=== PATIENT | female | born 1985 | race Two or more races ===

== ENCOUNTER 2018-08-07 01:31 | Emergency (ER) | payer OTHER ==
[~2018-08-07] VITALS: Ht 157.5 cm; Wt 51.3 kg
[2018-08-07] MEDS ORDERED: SYNTHROID88 MCG (01:49)
[2018-08-07] MEDS ORDERED: TAMS0.4C PO (06:42)
[2018-08-07] MEDS ORDERED: KETO10TA2 PO (06:42)
[2018-08-07] MEDS ORDERED: ONDANSETRON ODT4 MG SL (06:42)
== END 2018-08-07 07:44 | disposition home or self-care (01) ==
LOC: ER 01:31
DX: N21.1 Calculus in urethra (principal); R10.32 Left lower quadrant pain; K29.70 Gastritis, unspecified, without bleeding; E86.0 Dehydration

== ENCOUNTER 2023-03-24 00:02 | Inpatient (IN) | payer OTHER ==
[~2023-03-24] VITALS: Ht 157.5 cm; Wt 51.7 kg
[~2023-03-24 00:02] MED LIST: KETO10TA2 PO; ONDANSETRON ODT4 MG SL; SYNTHROID88 MCG; TAMS0.4C PO
[2023-03-24 02:38] LABS: HEMATOCRIT 37.5 % (36.0-45.00); HEMOGLOBIN 12.9 g/dL (12.0-15.00); MEAN CELL VOLUME 85.5 fL (80.00-100.00); MEAN CORPUSCULAR HEMOGLOBIN 29.4 pg (27.00-32.0); MEAN CORPUSCULAR HGB CONC 34.3 g/dl (32.0-36.0); PLATELET COUNT 288 K/uL (150-450); RED BLOOD COUNT 4.39 M/uL (4.00-6.00); RED CELL DISTRIBUTION WIDTH 12.8 % (11.5-14.5)
[2023-03-24 03:09] LABS: ALBUMIN 3.5 gm/dL (3.4-5.0); BILIRUBIN TOTAL 0.2 mg/dL (0.3-1.2); CALCIUM 8.8 mg/dL (8.5-10.1); CREATININE SERUM 0.87 mg/dL (0.55-1.02); GFR 73.67; GLOBULINA 3.2 G/DL (2.4-3.5); POTASSIUM 3.72 mEq/L (3.5-5.1); TOTAL PROTEIN 6.7 gm/dL (6.4-8.2)
[2023-03-24 03:11] LABS: TSH 1.54 uIU/mL (0.358-3.74)
[2023-03-24] MEDS ORDERED: CLOPIDOGREL BISULFATE 75 MG TABLET PO STA (07:32)
[2023-03-24] MEDS ORDERED: NITROGLYCERIN 0.4 MG/HR PATCH.TD24 TD STA (07:33)
[2023-03-24] MEDS ORDERED: SODIUM CHLORIDE 0.45 % 1,000 ML IV SCH (09:00)
[2023-03-24] MEDS ORDERED: METOPROLOL SUCCINATE 50 MG TAB.SR.24H PO SCH (09:00)
[2023-03-24] MEDS ORDERED: LEVOTHYROXINE SODIUM 100 MCG TABLET PO SCH (09:00)
[2023-03-24] MEDS ORDERED: NITROGLYCERIN 0.4 MG TAB.SUBL SL PRN (09:00)
[2023-03-24] MEDS ORDERED: METOPROLOL SUCCINATE 25 MG TAB.SR.24H PO SCH (09:00)
[2023-03-24] MEDS ORDERED: PANTOPRAZOLE SODIUM 40 MG/VIAL VIAL IV PUSH SCH (09:00)
[2023-03-24] MEDS ORDERED: ACETAMINOPHEN 500 MG GEL..CAP PO PRN (09:00)
[2023-03-24] MEDS ORDERED: ONDANSETRON HCL 4 MG in DEXTROSE 5 % IN WATER 50 ML IV PRN (09:00)
[2023-03-24] MEDS ORDERED: ENOXAPARIN SODIUM 60 MG/0.6 ML SYRINGE SUBCUTANEO SCH ×2 (09:00→21:00)
[2023-03-24] MEDS ORDERED: METHYLPREDNISOLONE SOD SUCC 40 MG VIAL IV STA (10:42)
[2023-03-24] MEDS ORDERED: DIPHENHYDRAMINE HCL 50 MG/ML VIAL 1ML IV SCH (10:45)
[2023-03-24] MEDS ORDERED: FF) FLECAINIDE ACETATE 50MG TAB PO SCH (21:00)
[2023-03-24] MEDS ORDERED: CLONAZEPAM 0.5 MG TABLET PO SCH (21:00)
[2023-03-25 06:04] LABS: HEMATOCRIT 33.1 % (36.0-45.00); HEMOGLOBIN 11.2 g/dL (12.0-15.00); MEAN CELL VOLUME 86.1 fL (80.00-100.00); MEAN CORPUSCULAR HEMOGLOBIN 29.1 pg (27.00-32.0); MEAN CORPUSCULAR HGB CONC 33.9 g/dl (32.0-36.0); PLATELET COUNT 279 K/uL (150-450); RED BLOOD COUNT 3.84 M/uL (4.00-6.00); RED CELL DISTRIBUTION WIDTH 12.7 % (11.5-14.5)
[2023-03-25 06:39] LABS: INR 1.08; PARTIAL THROMBOPLASTIN TIME 30.3 SECONDS (22.0-34.0); PROTHROMBIN TIME 11.3 SECONDS (9.0-11.5)
[2023-03-25 06:47] LABS: ALBUMIN 3.1 gm/dL (3.4-5.0); ALKALINE PHOSPHATASE 68 U/L (50-136); ALT/SGPT 13 U/L (12-78); ANION GAP 7 (10.0-20.0); AST/SGOT 6 U/L (15-37); BILIRUBIN TOTAL 0.29 mg/dL (0.3-1.2); BILIRUBIN,CONJUGATED < 0.10 mg/dL (0.0-0.2); BILIRUBIN,UNCONJUGATED 0.19 mg/dL (0.0-0.6); BLOOD UREA NITROGEN 11 mg/dL (7-18); BUN CREA RATIO 14 (7.0-25.0); CALCIUM 8.3 mg/dL (8.5-10.1); CARBON DIOXIDE 27 mEq/L (21-32); CHLORIDE 108 mmol/L (98-107); CHOL HDL RATIO 3.2 (0-5.0); CHOLESTEROL 158 mg/dL (0-200); GFR 81.16; GLOBULINA 2.7 G/DL (2.4-3.5); GLUCOSE FASTING 110 mg/dL (65-100); HDL 50 mg/dl (40-60); LDL 91 mg/dl (0-130); OSMOLALITY SERUM 278 MOSM/KG (275-295); POTASSIUM 3.18 mEq/L (3.5-5.1); SODIUM 139 mmol/L (136-145); T4 FREE 1.21 NG/ML (0.76-1.46); TOTAL PROTEIN 5.8 gm/dL (6.4-8.2); TRIGLYCERIDES 83 mg/dL (0-150); VLDL 16 (0-39)
[2023-03-25 06:48] LABS: C-REACTIVE PROTEIN < 0.29 MG/DL (0.00-0.29); HCG QUANTITATIVE < 1 mUI/mL (1-3)
[2023-03-25] MEDS ORDERED: METOPROLOL SUCCINATE 25 MG TAB.SR.24H PO SCH (09:00)
[2023-03-25] MEDS ORDERED: FF) FLECAINIDE ACETATE 50MG TAB PO SCH (10:45)
[2023-03-25] MEDS ORDERED: POTASSIUM CHLORIDE 20MEQ/100ML H2O PB IV SCH (18:00)
[2023-03-25] MEDS ORDERED: FAMOtidine 40 MG TABLET PO SCH (21:00)
[2023-03-26] MEDS ORDERED: LEVOTHYROXINE SODIUM 100 MCG TABLET PO SCH (06:00)
[2023-03-26] MEDS ORDERED: FLECAINIDE ACET50 MG PO (08:37)
[2023-03-26] MEDS ORDERED: TOPROL XL25 M1 PO (08:37)
[2023-03-26] MEDS ORDERED: FAMOTIDINE40 MG PO (08:38)
[2023-03-26] MEDS ORDERED: SYNTHROID100 MCG PO (08:38)
== END 2023-03-26 11:44 | disposition home or self-care (01) | DRG 282 ==
LOC: ER 00:02 → SEC-K 09:47 → MEDI 09:47
PROVIDERS: ADMIT Internal Medicine; ATTEND Internal Medicine
PROC: B44HZZZ Ultrasonography of Bilateral Lower Extremity Arteries (ICD-10-PCS; principal; 2023-03-24)
PROC: BW24YZZ Computerized Tomography (CT Scan) of Chest and Abdomen using Other Contrast (ICD-10-PCS; 2023-03-24)
PROC: B24BZZZ Ultrasonography of Heart with Aorta (ICD-10-PCS; 2023-03-24)
PROC: 4A12X4Z Monitoring of Cardiac Electrical Activity, External Approach (ICD-10-PCS; 2023-03-24)
DX: I48.20 Chronic atrial fibrillation, unspecified (principal); I21.A1 Myocardial infarction type 2; I45.6 Pre-excitation syndrome; E87.6 Hypokalemia; I49.9 Cardiac arrhythmia, unspecified

== ENCOUNTER 2024-02-19 12:55 | Inpatient (IN) | payer OTHER ==
[~2024-02-19] VITALS: Ht 157.5 cm; Wt 67.1 kg
[~2024-02-19 12:55] MED LIST changes: +FAMOTIDINE40 MG PO; +FLECAINIDE ACET50 MG PO; +SYNTHROID100 MCG PO; +TOPROL XL25 M1 PO
[2024-03-01 10:45] VITALS: BP 119/75
[2024-03-01] MEDS ORDERED: AMPICILLIN SODIUM 2,000 MG VIAL ONE (11:19)
[2024-03-01] MEDS ORDERED: OXYTOCIN 20 UNITS/500ML RL PIGGYBAG IV ONE (11:43)
[2024-03-01] MEDS ORDERED: OXYTOCIN 500 ML IV SCH (11:45)
[2024-03-01 12:00] LABS: MEAN CELL VOLUME 82.1 fL (80.00-100.00); MEAN CORPUSCULAR HEMOGLOBIN 27.4 pg (27.00-32.0); MEAN CORPUSCULAR HGB CONC 33.3 g/dl (32.0-36.0); PLATELET COUNT 242 K/uL (150-450); RED BLOOD COUNT 4.02 M/uL (4.00-6.00)
[2024-03-01] MEDS ORDERED: PRENATA CHEWAB1 EACH PO (12:12)
[2024-03-01] MEDS ORDERED: SYNTHROID150 MCG PO (12:12)
[2024-03-01] MEDS ORDERED: PROBIOTIC1 EAC4 PO (12:13)
[2024-03-01] MEDS ORDERED: IRON236 MG PO (12:13)
[2024-03-01] MEDS ORDERED: AMPICILLIN SODIUM 2,000 MG VIAL IV ONE (12:15)
[2024-03-01] MEDS ORDERED: RINGERS SOLUTION,LACTATED 1,000 ML IV SCH ×2 (12:15→17:00)
[2024-03-01 12:25] LABS: INR < 0.93; PARTIAL THROMBOPLASTIN TIME 27.8 SECONDS (22.0-34.0)
[2024-03-01 12:41] LABS: RED CELL DISTRIBUTION WIDTH 17.8 % (11.5-14.5)
[2024-03-01 12:50] LABS: ALBUMIN 2.3 gm/dL (3.4-5.0); BILIRUBIN TOTAL 0.28 mg/dL (0.3-1.2); CALCIUM 9.1 mg/dL (8.5-10.1); CREATININE SERUM 0.69 mg/dL (0.55-1.02); GFR 95.73; GLOBULINA 3.7 G/DL (2.4-3.5); POTASSIUM 4.1 mEq/L (3.5-5.1)
[2024-03-01 15:50] VITALS: BP 116/72
[2024-03-01] MEDS ORDERED: AMPICILLIN SODIUM 1,000 MG VIAL IV SCH (16:00)
[2024-03-01] MEDS ORDERED: OXYTOCIN 10 UNITS/ML VIAL ONE (16:06)
[2024-03-01] MEDS ORDERED: ERYTHROMYCIN BASE OPHT 1GM EACH TUBE OP ONE (16:07)
[2024-03-01] MEDS ORDERED: MORPHINE SULFATE 4 MG/ML CARTRIDGE IV PRN (17:00)
[2024-03-01] MEDS ORDERED: SIMETHICONE 125 MG CAPSULE PO SCH (17:00)
[2024-03-01] MEDS ORDERED: OXYTOCIN 1,000 ML IV ONE (17:00)
[2024-03-01] MEDS ORDERED: GABAPENTIN 300 MG CAPSULE PO SCH (17:00)
[2024-03-01] MEDS ORDERED: ONDANSETRON HCL 2 MG/ML VIAL IV SCH (18:00)
[2024-03-01] MEDS ORDERED: KETOROLAC TROMETHAMINE 30 MG VIAL IV SCH (18:00)
[2024-03-01] MEDS ORDERED: ACETAMINOPHEN 500 MG GEL..CAP PO SCH (18:00)
[2024-03-01] MEDS ORDERED: ONDANSETRON HCL 2 MG/ML VIAL ONE (20:28)
[2024-03-01] MEDS ORDERED: ACETAMINOPHEN 500 MG GEL..CAP PO ONE (20:28)
[2024-03-01] MEDS ORDERED: KETOROLAC TROMETHAMINE 30 MG VIAL ONE (20:29)
[2024-03-01] MEDS ORDERED: SIMETHICONE 125 MG CAPSULE PO ONE (20:32)
[2024-03-01] MEDS ORDERED: GABAPENTIN 300 MG CAPSULE PO ONE (20:32)
[2024-03-01 21:25] VITALS: BP 115/75
[2024-03-02 00:34] VITALS: BP 120/76
[2024-03-02 07:03] LABS: HEMATOCRIT 28.4 % (36.0-45.00); HEMOGLOBIN 9.9 g/dL (12.0-15.00); MEAN CELL VOLUME 81.8 fL (80.00-100.00); MEAN CORPUSCULAR HEMOGLOBIN 28.4 pg (27.00-32.0); MEAN CORPUSCULAR HGB CONC 34.7 g/dl (32.0-36.0); PLATELET COUNT 194 K/uL (150-450); RED BLOOD COUNT 3.48 M/uL (4.00-6.00); RED CELL DISTRIBUTION WIDTH 17.9 % (11.5-14.5)
[2024-03-02 08:00] VITALS: BP 104/69
[2024-03-02] MEDS ORDERED: KETOROLAC TROMETHAMINE 10 MG TABLET PO SCH (08:00)
[2024-03-02] MEDS ORDERED: OxyCODONE HCL 5 MG TABLET (ROXICODONE) PO PRN (08:00)
[2024-03-02] MEDS ORDERED: IRON FUM,PS/FOLIC/BCOMP,C NO.9 1 CAP CAPSULE PO SCH (09:00)
[2024-03-02] MEDS ORDERED: DOCUSATE SODIUM 100MG CAP PO SCH (09:00)
[2024-03-02] MEDS ORDERED: PATIENTS OWN MEDICATION (MEDICAMENTO EN PISO) PO NR (10:45)
[2024-03-02 21:08] VITALS: BP 100/66
[2024-03-03] VITALS: BP 105/70
[2024-03-03 08:00] VITALS: BP 109/69
[2024-03-03] MEDS ORDERED: PATIENTS OWN MEDICATION (MEDICAMENTO EN PISO) PO SCH (09:00)
== END 2024-03-03 13:57 | disposition home or self-care (01) | DRG 788 ==
LOC: LDR 02-26 13:30 → OB/GYN 03-01 08:59 → LDR 03-01 09:42 → OB/GYN 03-01 18:37
PROVIDERS: ADMIT Obstetrics & Gynecology; ATTEND Obstetrics & Gynecology
PROC: 4A1HXCZ Monitoring of Products of Conception, Cardiac Rate, External Approach (ICD-10-PCS; 2024-03-01)
PROC: 10D00Z1 Extraction of Products of Conception, Low, Open Approach (ICD-10-PCS; principal; 2024-03-01 18:30)
DX: O62.0 Primary inadequate contractions (principal); O36.8130 Decreased fetal movements, third trimester, not applicable or unspecified; Z3A.39 39 weeks gestation of pregnancy; Z37.0 Single live birth

== ENCOUNTER 2024-02-25 11:06 | Outpatient (CLI) | payer OTHER | END 2024-02-25 11:58 | disposition home or self-care (01) | LOC: NST 11:06 | PROVIDERS: ATTEND Obstetrics & Gynecology Gynecology | DX: Z3A.39 39 weeks gestation of pregnancy (principal) ==